=== PATIENT | female | born 1970 | race Caucasian/White ===

== ENCOUNTER 2024-06-09 21:06 | Emergency (ER) | payer SELFPAY ==
[2024-06-09 21:10] VITALS: BP 136/82
[2024-06-09 22:45] VITALS: BP 117/86
== END 2024-06-09 23:34 | disposition left against medical advice (07) ==
LOC: EMR 21:06
PROVIDERS: EMERGENCY PHYSICIAN Student in an Organized Health Care Education/Training Program
DX: S82.831A Other fracture of upper and lower end of right fibula, initial encounter for closed fracture (principal); X58.XXXA Exposure to other specified factors, initial encounter; Z53.21 Procedure and treatment not carried out due to patient leaving prior to being seen by health care provider
CPT/HCPCS: 73610

== ENCOUNTER 2024-06-10 11:27 | Emergency (ER) | payer OTHER, SELFPAY ==
[2024-06-10 11:30] VITALS: BP 149/108
--- NOTE | 2024-06-10 11:30 | ED.PDOC.TRB ---
ED Provider Triage
-
A medical screening examination has been initiated by a qualified medical provider. Based on the assessment performed at this time, it has been determined that an emergent medical condition may exist and the patient has been informed that further
medical evaluation and possible additional diagnostic testing may be needed.
HPI: This is a medical evaluation conducted in person to initiate diagnostic evaluation and provide initial therapeutics. Please see further documentation by the treating clinician.
GENERAL: Alert , in no apparent distress
EYE: No visual abnormalities.
NECK: Trachea midline
ENT: No visible abnormalities.
LUNGS: No acute respiratory distress, tachy
NEUROLOGICAL: Alert and oriented
SKIN: Skin intact. No visible changes.
MUSCULOSKELETAL: on exam pt has no calf tenderness
right lat mall bruising, swelling, tendnerss, swelling into the foot
normal pulse
paniful limited ROM
PSYCH: Normal and appropriate interaction
54 y/o F
woke up 3 days ago with a painful bruising lump on her right lower leg
says no trauma
then the pain and swelling hads moved down to the right lateral ankle with bruising
pt has limited weight bearing
came last night, had ankle xr but LWOT
xray reviewed: spiral fx distal fib; could be pathologic
pt has had fx previously inthis ankle but this appears acute
pt is tachy but just smoked cig
will draw labs, get tib/fib xr and dvt study
[2024-06-10 12:01] LABS: % Basophils 0.7 % (0-2); % Immature Granulocytes 0.4 % (0-0.5); % Lymphocytes 40.5 % (20.5-51.1); % Monocytes 7.8 % (1.7-9.3); % Neutrophils 48.6 % (42.2-75.2); Absolute Eosinophils 0.1 10^3/uL (0-0.7); Absolute Lymphocytes 1.8 10^3/uL (1.2-3.4); Absolute Monocytes 0.4 10^3/uL (0.1-0.6); Absolute Neutrophils 2.2 10^3/uL (1.4-6.5); Hematocrit 39.9 % (37.0-47.0); Hemoglobin 13.7 g/dL (12.0-16.0); Mean Corp Hgb Conc. 34.3 g/dL (33.0-37.0); Mean Corpuscular Hgb 31.6 pg (27.0-31.0); Mean Corpuscular Volume 91.9 fL (81.0-99.0); Mean Platelet Volume 9.6 fL (7.4-10.4); Nucleated Red Blood Cells % 0 %; Platelet Count 187 10^3/uL (130-400); Red Blood Cell Count 4.34 10^6/uL (4.20-5.40); Red Cell Dist. Width 12.6 % (11.5-14.5); White Blood Cell Count 4.5 10^3/uL (4.8-10.8)
[2024-06-10 12:06] LABS: INR 1.05; PT 13.5 Sec (11.4-14.6)
[2024-06-10 12:07] LABS: APTT 32.5 Sec (23.4-35.0)
[2024-06-10 12:08] LABS: ALT (SGPT) 57 U/L (0-35); AST (SGOT) 100 U/L (14-36); Albumin 4.5 g/dl (3.5-5.0); Alkaline Phosphatase 84 U/L (38-126); Blood Urea Nitrogen 9 mg/dl (7-17); Calcium 9.5 mg/dl (8.4-10.2); Carbon Dioxide 28 mmol/L (22-30); Chloride 103 mmol/L (98-107); Glucose 109 mg/dl (70-99); Potassium 3.9 mmol/L (3.5-5.1); Sodium 142 mmol/L (135-145); Total Bilirubin 0.8 mg/dl (0.2-1.3); Total Protein 7.2 g/dl (6.3-8.2); eGFR > 60.00
[2024-06-10 13:57] VITALS: BP 129/89
--- NOTE | 2024-06-10 15:41 | ED.GENMED ---
History of Present Illness
General
Chief Complaint: DVT/Possible Blood Clot
Source: patient
Time Seen by Provider: 06/10/24 12:02
History of Present Illness
History of Present Illness:
54yoF with no significant past medical history presenting for evaluation of right ankle pain and swelling. Patient woke up with her symptoms 3 days ago. She denies any trauma or inciting incident. Patient has been having significant pain with
weightbearing. She has also developed ecchymosis and swelling to the foot and lower leg. She checked into the ED last night for her symptoms. She had an ankle x-ray which showed a distal fibular fracture. Patient left without being seen due to
long wait times. No paresthesias. No shortness of breath or chest pain.
Past History
Past History
ED Past Medical History: None and Other (10 hysterectomy)
ED Past Surgical History: Gynecological (hysterectomy), Tonsilectomy and Other (Breast implants)
Social History
Tobacco: Smoker
Alcohol: Occasional
Drug: None
Personal:
Living: with family
Employment: Employed
Family History
Family History: Other
Phy Exam
General Physical Exam
General Presentation: well appearing and no apparent distress
General age: appears stated age
General Skin: warm and dry
General Habitus: normal
General Mental: alert
Pulmonary Exam
Pulmonary Exam: no respiratory distress
[place] Coma Scale
Eye Opening: Spontaneous
Verbal Response: Oriented
Motor Response: Obeys Commands
GCS Total Score: 15
Musculoskeletal Exam
Musculoskeletal Exam: other (R ankle: Swelling and ecchymosis noted to ankle/foot. +Tenderness to distal fibula. ROM intact. 2+ DP pulse and sensation intact. )
Skin Exam
Skin Exam: warm/dry
Psychiatric Exam
Psychiatric Exam: normal mood/affect
Course
Orders/Labs/Results
Orders:
Orders
06/10/24 11:31
Periph Venous Lwr Ext Rt US [US Periph Venous LOWER Ext RT] Urgent
Comment:
Reason For Exam: right lower leg pain/swelling
06/10/24 11:32
Tib/Fib, Right 2 View [CR Leg Tibia/fibula Right 2 Vw] Urgent
Comment:
Reason For Exam: right lower leg pain/bruising
06/10/24 11:43
Complete Blood Count/With Diff Urgent
Comprehensive Metabolic Panel Urgent
PTT Urgent
Prothrombin Time Urgent
06/10/24 12:40
Splints/Slings/Crut- Treatment ONCE
Location: Right
Type of Splint: Short Leg
06/10/24 13:34
Crutches-Treatment ONCE
Abnormal Lab Results
06/10/24
11:43
WBC 4.5 L 10^3/uL
(4.8-10.8)
MCH 31.6 H pg
(27.0-31.0)
Creatinine 0.5 L mg/dL
(0.6-1.0)
Glucose 109 H mg/dl
(70-99)
AST 100 H U/L
(14-36)
ALT 57 H U/L
(0-35)
06/10/24 11:43
06/10/24 11:43
Vital Signs
Initial and Last Documented VS:
Initial Vital Signs
Temp Pulse Resp BP Pulse Ox
97.8 F 114 18 149/108 96
06/10/24 11:30 06/10/24 11:30 06/10/24 11:30 06/10/24 11:30 06/10/24 11:30
Last Documented Vital Signs
Temp Pulse Resp BP Pulse Ox
97.8 F 97 18 129/89 99
06/10/24 11:30 06/10/24 13:57 06/10/24 11:30 06/10/24 13:57 06/10/24 13:57
MDM/Problems Addressed
Differential Diagnosis Includes:
54yoF here with atraumatic R ankle pain and swelling x 3 days. X-rays last night showed a distal fibular fracture but patient LWBS. She is afebrile and hemodynamically stable. Swelling and ecchymosis noted on exam. RLE is neurovascularly intact.
Differential diagnosis includes but is not limited to: fracture, sprain, DVT
Initial ED plan: Check CBC, CMP, coags, tib/fib x-rays, and venous duplex.
*Critical Care Note
Total Time (30-74mins, 75-104mins- exclusive of procedures): Not Applicable
Update Note
Update Note:
Venous duplex is negative for DVT. No other fractures seen on tib/fib x-rays. Patient placed in a short leg splint by nursing staff. Neurovascular status unchanged after splint placement. Crutches provided. Patient requesting prescription for pain
medication and she was given a prescription for oxycodone. Advised f/u with orthopedics. She was discharged in stable condition.
ED Attending Note
-
Portions of this chart may have been created with voice recognition software.� Occasional wrong word or��sound alike� substitutions may have occurred due to the inherent limitations of voice recognition software.
Discharge Plan
Departure
Patient Disposition: Home (Routine Discharge)
Date of Disposition: 06/10/24
Time of Disposition: 13:33
Patient with high blood pressure during this ER visit?: Yes
Discharge Problem:
Fracture of right ankle
Prescriptions:
New
oxycodone 5 mg tablet
5 mg PO Q6H PRN (Reason: Pain) Qty: 8 0RF
No Action
amoxicillin-pot clavulanate 1 TABLET tablet
1 tab PO Q12 Qty: 14 0RF
Referrals:
Chaitanya Alicea MD [Active] -
UNKNOWN - PT DOES,NOT KNOW [Family Provider] -
Activity Restrictions/Additional Instructions:
Do not bear weight until seen by orthopedics. Take Tylenol and ibuprofen for pain. Take oxycodone only as needed for severe breakthrough pain.
Please follow-up with orthopedics.
Interventions
Interventions:
*Risk Screen - Suicide Last Done: 06/10/24 11:30
*General Assessment Last Done: 06/10/24 11:30
*Neglect/Abuse Screening Last Done: 06/10/24 11:30
*Nursing Disposition Last Done: 06/10/24 13:57
ED- Cardiac Assessment Last Done: 06/10/24 13:52
ED- Pulmonary Assessment Last Done: 06/10/24 13:55
ED-Skin Assessment Last Done: 06/10/24 13:52
Discharge Date and Time
Discharge Date/Time: 06/10/24 15:11
Print Language: IRISH
== END 2024-06-10 15:11 | disposition home or self-care (01) ==
LOC: EMR 11:27
PROVIDERS: Physician Assistant; EMERGENCY PHYSICIAN Emergency Medicine
DX: S82.451A Displaced comminuted fracture of shaft of right fibula, initial encounter for closed fracture (principal); X58.XXXA Exposure to other specified factors, initial encounter; F17.200 Nicotine dependence, unspecified, uncomplicated
CPT/HCPCS: 99285; 29515; 73590; 80053; 85025; 85610; 85730; 93971